=== PATIENT | male | born 1975 | race Caucasian/White ===

== ENCOUNTER 2020-07-22 10:55 | Emergency (ER) | payer OTHER ==
[~2020-07-22 10:55] MED LIST: AUGMENTIN 875-1 EACH PO; BACTROBAN OINT22 GM EXT; CLEOCIN HCL150 MG PO; IBU600 MG PO; IBUPROFEN600 MG PO; KEFLEX CAP 500500 MG PO; NORCO 5-325 TA1 EACH PO; PERCOCET 5/325 T1 EA PO; ZOFRAN ODT 4 MG4 MG PO; ZOFRAN4 MG PO
== END 2020-07-22 16:00 | disposition left against medical advice (07) ==
LOC: ER1 10:55
DX: M54.5 Low back pain (principal); Z53.21 Procedure and treatment not carried out due to patient leaving prior to being seen by health care provider

== ENCOUNTER 2021-02-05 00:56 | Emergency (ER) | payer OTHER ==
[2021-02-05 01:32] LABS: HEMOGLOBIN 15.9 gm/dl (14.0-17.5); RED BLOOD COUNT 5.03 M/UL (4.20-5.50); WHITE BLOOD COUNT 8.2 K/UL (4.5-11.0)
[2021-02-05 01:48] LABS: BUN/CREATININE RATIO 10 (0-10)
[2021-02-05] MEDS ORDERED: NARCAN4 MG (05:31)
== END 2021-02-05 05:57 | disposition home or self-care (01) ==
LOC: ER1 00:56
PROVIDERS: Student in an Organized Health Care Education/Training Program
DX: T40.601A Poisoning by unspecified narcotics, accidental (unintentional), initial encounter (principal); I10 Essential (primary) hypertension; F17.210 Nicotine dependence, cigarettes, uncomplicated
CPT/HCPCS: 80053; 82550; 82553; 82803; 83690; 85025; 93005; 96374; 99284; G0480; J2405

== ENCOUNTER 2021-09-04 09:33 | Emergency (ER) | payer OTHER ==
[~2021-09-04 09:33] MED LIST changes: +NARCAN4 MG
[2021-09-04] MEDS ORDERED: IBUPROFEN600 MG PO (12:40)
== END 2021-09-04 12:53 | disposition home or self-care (01) ==
LOC: ER1 09:33
DX: K40.90 Unilateral inguinal hernia, without obstruction or gangrene, not specified as recurrent (principal); I10 Essential (primary) hypertension; F17.210 Nicotine dependence, cigarettes, uncomplicated
CPT/HCPCS: 99284; Q9967

== ENCOUNTER 2022-03-03 14:48 | Inpatient (IN) | payer OTHER ==
[~2022-03-03] VITALS: Ht 188 cm; Wt 89.0 kg
[2022-03-03 15:51] LABS: HEMOGLOBIN 16.8 gm/dl (14.0-17.5); RED BLOOD COUNT 5.46 M/UL (4.20-5.50); WHITE BLOOD COUNT 12.3 K/UL (4.5-11.0)
[2022-03-03 15:59] LABS: BORDETELLA PARAPERTUSSIS Not Detected (Not Detectd); BORDETELLA PERTUSSIS Not Detected (Not Detectd); CHLAMYDIA PNEUMONIAE Not Detected (Not Detectd); CORONAVIRUS HKU1 Not Detected (Not Detectd); CORONAVIRUS NL63 Not Detected (Not Detectd); CORONAVIRUS OC43 Not Detected (Not Detectd); CORONOAVIRUS 229E Not Detected (Not Detectd); HUMAN METAPNEUMOVIRUS Not Detected (Not Detectd); HUMAN RHINOVIRUS/ENTEROVIRUS Not Detected (Not Detectd); INFLUENZA A Not Detected (Not Detectd); INFLUENZA B Not Detected (Not Detectd); MYCOPLASMA PNEUMONIAE Not Detected (Not Detectd); PARAINFLUENZA VIRUS 1 Not Detected (Not Detectd); PARAINFLUENZA VIRUS 2 Not Detected (Not Detectd); PARAINFLUENZA VIRUS 3 Not Detected (Not Detectd); PARAINFLUENZA VIRUS 4 Not Detected (Not Detectd); RESPIRATORY SYNCYTIAL VIRUS Not Detected (Not Detectd)
[2022-03-03 16:06] LABS: BUN/CREATININE RATIO 11 (0-10)
[2022-03-03 16:58] LABS: SARS-CoV-2 NOT DETECTED (Not Detectd)
[2022-03-04 06:41] LABS: HEMOGLOBIN 13.5 gm/dl (14.0-17.5); RED BLOOD COUNT 4.47 M/UL (4.20-5.50); WHITE BLOOD COUNT 8.3 K/UL (4.5-11.0)
[2022-03-04 07:29] LABS: BUN/CREATININE RATIO 11 (0-10)
[2022-03-04] MEDS ORDERED: AMLODIPINE BESYL5 MG PO (13:16)
[2022-03-04] MEDS ORDERED: IBU600 MG PO (13:17)
[2022-03-04] MEDS ORDERED: LISINOPRIL40 MG PO (13:17)
[2022-03-04] MEDS ORDERED: OMEPRAZOLE40 MG PO (13:18)
[2022-03-04] MEDS ORDERED: ESCITALOPRAM OX10 MG PO (13:18)
[2022-03-04] MEDS ORDERED: QUETIAPINE FUMA50 MG PO (13:54)
[2022-03-05 04:09] LABS: HEMOGLOBIN 13.8 gm/dl (14.0-17.5); RED BLOOD COUNT 4.55 M/UL (4.20-5.50); WHITE BLOOD COUNT 7.8 K/UL (4.5-11.0)
[2022-03-05 04:28] LABS: BUN/CREATININE RATIO 13 (0-10)
[2022-03-06 02:18] LABS: HEMOGLOBIN 14.4 gm/dl (14.0-17.5); RED BLOOD COUNT 4.73 M/UL (4.20-5.50); WHITE BLOOD COUNT 8.9 K/UL (4.5-11.0)
[2022-03-06 02:50] LABS: BUN/CREATININE RATIO 11 (0-10)
[2022-03-06] MEDS ORDERED: NICOTINE PATCH1 EAC2 TD (09:57)
[2022-03-06] MEDS ORDERED: CARVEDILOL3.125 MG PO (09:57)
[2022-03-06] MEDS ORDERED: LISINOPRIL40 MG PO (09:59)
== END 2022-03-06 14:12 | disposition home or self-care (01) | DRG 917 ==
LOC: ER1 14:48 → CDU 17:51 → M/S 17:51 → CCU 21:04 → M/S 03-05 13:58
PROVIDERS: Preventive Medicine Occupational Medicine; ADMIT Internal Medicine
PROC: 0BH17EZ Insertion of Endotracheal Airway into Trachea, Via Natural or Artificial Opening (ICD-10-PCS; 2022-03-03)
PROC: 5A1935Z Respiratory Ventilation, Less than 24 Consecutive Hours (ICD-10-PCS; 2022-03-03)
PROC: B24BZZZ Ultrasonography of Heart with Aorta (ICD-10-PCS; principal; 2022-03-04)
PROC: 5A09357 Assistance with Respiratory Ventilation, Less than 24 Consecutive Hours, Continuous Positive Airway Pressure (ICD-10-PCS; 2022-03-05)
DX: T43.622A Poisoning by amphetamines, intentional self-harm, initial encounter (principal); G92.8 Other toxic encephalopathy; J96.01 Acute respiratory failure with hypoxia; N17.9 Acute kidney failure, unspecified; M62.82 Rhabdomyolysis; Z99.11 Dependence on respirator [ventilator] status; F19.10 Other psychoactive substance abuse, uncomplicated; D72.829 Elevated white blood cell count, unspecified; Z20.822 Contact with and (suspected) exposure to COVID-19; F17.210 Nicotine dependence, cigarettes, uncomplicated; I08.3 Combined rheumatic disorders of mitral, aortic and tricuspid valves; Y92.9 Unspecified place or not applicable
CPT/HCPCS: ECHO; 31500; 36415; 36600; 51702; 70450; 71045; 74018; 80048; 80053; 80061; 80307; 81001; 82140; 82550; 82553; 82803; 83036; 83605; 83690; 83735; 83880; 84439; 84443; 84484; 85025; 85652; 86140; 87086; 87633; 93005; 93306; 94002; 94003; 94640; 94660; 94664; 94760; 96372; 96374; 96375; 97116; 97116-GP-CQ; 97161; 97166; 99285; C9113; G0480; J0696; J1650; J2704